=== PATIENT | male | born 1995 | race African-American/Black ===

== ENCOUNTER 2020-07-31 13:35 | Emergency (ER) | payer BC, SELFPAY | END 2020-07-31 14:05 | disposition home or self-care (01) | LOC: ERS 13:35 | DX: J36 Peritonsillar abscess (principal) | CPT/HCPCS: 99282 ==

== ENCOUNTER 2021-07-08 06:01 | Emergency (ER) | payer SELFPAY ==
[2021-07-08] MEDS ORDERED: Lidocaine 1% PF 5 ML VIAL ONE (06:25)
[2021-07-08] MEDS ORDERED: Boostrix 0.5 ML (Tdap) VIAL ONE (06:41)
[2021-07-08] MEDS ORDERED: HYDROcodone/Acetaminophen 5/325 mg Tablet ONE (06:41)
[2021-07-08] MEDS ORDERED: CEFAZOLIN 1 GM VIAL ONE (06:41)
[2021-07-08] MEDS ORDERED: Ampicillin 2 GM VIAL ONE (06:42)
[2021-07-08] MEDS ORDERED: Sterile Water 10 ML ONE (06:44)
[2021-07-08] MEDS ORDERED: Bacitracin 1 PK ONE (07:54)
== END 2021-07-08 08:00 | disposition home or self-care (01) ==
LOC: ERS 06:01
DX: S61.210A Laceration without foreign body of right index finger without damage to nail, initial encounter (principal); Z23 Encounter for immunization; W22.8XXA Striking against or struck by other objects, initial encounter
CPT/HCPCS: 90471; 90715; 96372; J0290; J0690

== ENCOUNTER 2021-07-09 10:46 | Emergency (ER) | payer SELFPAY | END 2021-07-09 12:57 | disposition home or self-care (01) | LOC: ERS 10:46 | DX: S61.411A Laceration without foreign body of right hand, initial encounter (principal); W22.09XA Striking against other stationary object, initial encounter | CPT/HCPCS: 99282 ==